=== PATIENT | male | born 1970 | race Hispanic/Latino ===

== ENCOUNTER 2020-05-09 14:30 | Emergency (ER) | payer OTHER ==
[2020-05-09] MEDS ORDERED: LIDOCAINE HCL 1% 20 ML VIAL ONE (14:57)
[2020-05-09] MEDS ORDERED: CEPHALEXIN 500 MG CAPSULE ONE (14:58)
[2020-05-09] MEDS ORDERED: IBUPROFEN 800 MG TAB ONE (15:23)
== END 2020-05-09 16:00 | disposition home or self-care (01) ==
LOC: EDH 14:30
DX: L03.032 Cellulitis of left toe (principal); Z98.890 Other specified postprocedural states; Z72.0 Tobacco use
CPT/HCPCS: 10060